=== PATIENT | female | born 1960 | race Caucasian/White ===

== ENCOUNTER 2017-10-09 12:46 | Outpatient (CLI) | payer OTHER ==
--- NOTE | 2017-10-09 13:43 | MMO ---
SCREENING MAMMOGRAM: Date: 10-09-17 Comparison: 09-13-15 History: Screening mammography. FINDINGS: This study is interpreted with the assistance of computer aided detection. There are scattered fibroglandular densities noted. There is a circumscribed mass in the superolateral aspect of the left breast, unchanged when compared to the prior exam, measuring approximately 1 cm. No dominant mass or architectural distortion. No co ncerning microcalcifications. IMPRESSION: BIRADS 2 - benign findings. Recommend annual screening mammography. POS: [facility]
== END 2017-10-09 12:47 | disposition home or self-care (01) ==
LOC: SCSMAMMO 12:46
PROVIDERS: ATTEND Family Medicine
DX: Z12.31 Encounter for screening mammogram for malignant neoplasm of breast (principal)
CPT/HCPCS: 77067